=== PATIENT | female | born 1960 | race Caucasian/White ===

== ENCOUNTER → 2017-07-27 | Outpatient (CLI) | payer OTHER ==
[2017-07-27 10:19] LABS: ABSOLUTE EOSINOPHILS 0.1 thou/uL (0.0-0.7); ABSOLUTE LYMPHOCYTES 2.1 thou/uL (0.8-5.3); ABSOLUTE MONOCYTES 0.3 thou/uL (0.0-1.2); ABSOLUTE NEUTROPHILS 2.8 thou/uL (1.6-8.1); BASOPHILS 0.7 %; EOSINOPHILS 1.1 %; HEMATOCRIT 38.8 % (37.0-47.0); HEMOGLOBIN 12.1 gm/dL (12.0-15.0); LYMPHOCYTES 40.4 %; MCH 23.6 pg (26.0-34.0); MCHC 31.3 g/dL (28.0-37.0); MCV 75.4 fL (80.0-100.0); MONOCYTES 5.8 %; MPV 8.7 fl. (7.2-11.1); NUCLEATED RBCS 0 /100WBC; PLATELET COUNT* 255 thou/uL (150-400); RBC 5.14 mil/uL (4.20-5.00); RDW-CV 13.9 % (10.5-14.5); WBC 5.3 thou/uL (4.0-11.0)
[2017-07-27 10:30] LABS: ALKALINE PHOSPHATASE 87 U/L (46-116); ANION GAP 7 mmol/L (7-16); BUN 14 mg/dL (7-18); CALCIUM 8.5 mg/dL (8.5-10.1); CHLORIDE 104 mmol/L (98-107); CHOLESTEROL 207 mg/dL (<200); CO2 30 mmol/L (21-32); CREATININE 0.7 mg/dL (0.6-1.3); GLUCOSE 117 mg/dL (70-99); HDL CHOLESTEROL 69 mg/dL (>40); LDL CHOLESTEROL 123 mg/dL (<100); POTASSIUM 3.9 mmol/L (3.5-5.1); SERUM ASSESSMENT Clear; SGOT 21 U/L (15-37); SGPT 32 U/L (30-65); SODIUM 141 mmol/L (136-145); TOTAL BILIRUBIN 0.7 mg/dL (<0.1-1.0); TOTAL PROTEIN 7.9 g/dL (6.4-8.2); TRIGLYCERIDE 78 mg/dL (<150); VLDL 16 mg/dL (<40)
== END ==
LOC: M.LAB 09:45
PROVIDERS: Internal Medicine
DX: Z01.419 Encounter for gynecological examination (general) (routine) without abnormal findings (principal)